=== PATIENT | female | born 2000 | race Caucasian/White ===

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

== ENCOUNTER 2020-02-09 05:58 | Inpatient (IN) | payer MEDICAID ==
[~2020-02-09] VITALS: Ht 162.6 cm; Wt 56.6 kg
[2020-02-09] VITALS (63 sets, daily range): BP systolic 71–138; BP diastolic 37–94
[~2020-02-09 05:58] MED LIST changes: +ACET-2267 PO
--- NOTE | 2020-02-09 06:03 | NUR ---
NICOLASA MCCORMACK presented to unit via AMBULATORY from ED, accompanied by S/O , FOR INDUCTION. NICOLASA MCCORMACK weighed, gowned, voided, and to bed. EFHM and TOCO applied, VS taken. KSENIAEDDManjula Guzman oriented to bed controls, call light, TV, heat, and A/C controls. ABOVE AND CHARTED INTERVENTIONS CARRIED OUT PER SEAN CORTEZ.
[2020-02-09] MEDS ORDERED: OXYTOCIN PRE-MIX DRIP 500 ML IV ONE (06:38)
[2020-02-09] MEDS ORDERED: D5 LR IV SOLUTION 1,000 ML IV ONE (06:38)
[2020-02-09] MEDS ORDERED: OXYTOCIN PRE-MIX DRIP 500 ML IV SCH ×2 (06:42→16:36)
[2020-02-09] MEDS ORDERED: BUTORPHANOL INJ 2 MG/ML (STADOL) VIAL IV PRN (06:45)
[2020-02-09 06:47] LABS: BASOPHILS % (AUTO) 0 % (0-10); EOSINOPHILS # (AUTO) 0.1 10^3/uL (0.0-0.3); EOSINOPHILS % (AUTO) 1 % (0-10); HEMATOCRIT 32 % (35-52); HEMOGLOBIN 10.7 G/DL (11.5-16.0); LYMPHOCYTES # (AUTO) 2.3 X 10^3 (1.0-4.0); LYMPHOCYTES % (AUTO) 20 % (12-44); MEAN CORPUSCULAR HEMOGLOBIN 30 PG (25-34); MEAN CORPUSCULAR HGB CONC 33 G/DL (32-36); MEAN CORPUSCULAR VOLUME 89 FL (80-99); MONOCYTES % (AUTO) 9 % (0-12); NEUTROPHILS # (AUTO) 7.7 X 10^3 (1.8-7.8); NEUTROPHILS % (AUTO) 69 % (42-75); PLATELET COUNT 168 10^3/uL (130-400); RED CELL DISTRIBUTION WIDTH 14.2 % (10.0-14.5); WHITE BLOOD COUNT 11.1 10^3/uL (4.3-11.0)
--- NOTE | 2020-02-09 06:47 | History & Physical-OB ---
OB - Chief Complaint & HPI Date/Time Date of Admission: Date of Admission: Feb 09, 2020 at 05:58 Date seen by a Provider: Feb 09, 2020 Time Seen by a Provider: 06:30 Chief Complaint/History OB-Reason for Admission/Chief: Induction of Labor Hx : 1 Hx Para: 0 Expected Date of Delivery: Feb 13, 2020 Gestational Age in Weeks: 39 Gestational Age in Days: 3 Admission Nurse Assessment Rev: Yes History of Labs GBS negative Allergies and Home Medications Allergies Coded Allergies: codeine (Verified Allergy, Mild, HIVES, 01/22/18) amoxicillin (Unverified Adverse Reaction, Mild, 01/22/18) potassium clavulanate (Unverified Adverse Reaction, Mild, 01/22/18) Home Medications Acetaminophen 325 Mg Tablet, 650 MG PO Q8H PRN for PAIN-MILD (1-4), (Reported) Acetaminophen 500 Mg Tablet, 1,000 MG PO PRN, (Reported) Vits #93/Iron Fum/FA 1 Each Tablet, 1 EACH PO DAILY, (Reported) Patient Home Medication List Home Medication List Reviewed: Yes OB - History Hx of Present Care: Yes Ultrasounds: Normal mid trimester US Obstetrical Complications: None Medical Complications: None Delivery History Hx Blood Disorders: No Adverse Rxn to Tranfusion: No (N/A) Patient Past Medical History no chronic medical problems Social History/Family History HIV/AIDS: No Sexually Transmitted Disease: No 2nd Hand Smoke Exposure: No Immunizations Tetanus Booster (TDap): Less than 5yrs OB - Admission Exam Physical Exam Vitals: Vital Signs 02/09/20 06:15 Pulse 92 Resp 18 B/P (MAP) 108/68 (81) Pulse Ox 98 O2 Delivery Room Air HEENT: Moist Membranes Heart: Rhythm Normal Lungs: Clear Abdomen: Gravid Cervical Dilatation: 2cm Effacement: 75% Station: -3 Membranes: Intact Heart Rate: 140's Accelerations: Accelerations Present Short Term Variability: Present Half-Way Variability: Average (6-25) Contractions on Admission: >10 Minutes Apart OB - Assessment/Plan/Diagnosis Assessment Assessment: induction of labor Admission Dx 1. IUP at term 39 weeks. Admission Status: Inpatient Order (span 2 midnights) Reason for Inpatient Admission: Induction of labor Plan Plan: Induction Induction Method: AROM Other Plan -doesn't desire epidural -pit augmentation NICOLASA PENN MD Feb 09, 2020 06:47
[2020-02-09] MEDS: D5 LR IV SOLUTION 1,000 ML IV SCH ×2 (06:58→14:53)
[2020-02-09] MEDS ORDERED: fentaNYL 2 mcg/ml BUPIVA 0.125 100 ML ONE (09:00)
[2020-02-09] MEDS ORDERED: BUPIVACAINE 0.25% 30 ML (SENSORCAINE) VIAL ONE (09:19)
[2020-02-09] MEDS ORDERED: fentaNYL INJECTION 100 MCG/2 ML AMP ONE (09:20)
--- NOTE | 2020-02-09 09:27 | NUR ---
0927 Lu ALEXANDER CRNA here for epidural placement. Procedure explained, consent reviewed and signed by anesthesia. Questions answered to patient's satisfaction. Time out taken to verify correct patient/procedure. 0932 Patient up to side of bed, assisted into sitting position. 0934 Betadine prep done x3 and sterile drape applied. 0936 Local done, see anesthesia record. 0943 Test dose given, see anesthesia record for drug and dosage. Epidural catheter secured in place. Epidural placement complete. 0948 Assisted back into bed, monitors adjusted. Epidural dosed, see anesthesia record. Epidural infusing @12cc/hr stated per pump; see EMAR for further details. Patient tolerated procedure well.
[2020-02-09] MEDS ORDERED: fentaNYL 2 mcg/ml BUPIVA 0.125 100 ML IV SCH (10:00)
[2020-02-09] MEDS ORDERED: CATHETER FLUSH 10 ML SYR IV PRN (10:00)
[2020-02-09] MEDS ORDERED: EPIDURAL (fentaNYL 2 MCG/ML BUPIVA 0.125%)100 ML BAG EPI SCH (10:00)
[2020-02-09] MEDS ORDERED: LACTATED RINGERS 1,000 ML IV ONE (10:00)
[2020-02-09] MEDS ORDERED: NALOXONE 0.4 MG/ML 1 ML (NARCAN) VIAL IV PRN (10:00)
[2020-02-09] MEDS ORDERED: CATHETER FLUSH 10 ML SYR IV SCH ×2 (14:00→22:00)
[2020-02-09] MEDS ORDERED: MINERAL OIL CONCENTRATE 99.9% 15 ML UDC ONE (14:29)
[2020-02-09] MEDS ORDERED: MEPIVACAINE (CARBOCAINE) 2% 50 ML VIAL ONE (14:29)
--- NOTE | 2020-02-09 16:36 | OB Labor & Delivery Record ---
L&D History Date of Service Date of Service: Feb 09, 2020 History Expected Date of Delivery: Feb 13, 2020 Gestational Age in Weeks: 39 Hx : 1 Hx Para: 0 Complications Events: Routine care Operative Indications (Cesarea: N/A-Vaginal Delivery Intrapartal Events: None L&D Stage1 Stage One Onset of Labor - Date: Feb 09, 2020 Onset of Labor - Time: 06:30 Monitors and Tracing Monitor Mode: Internal Heart Rate: 135 Monitor Accelerations: Uniform Monitor Decelerations: None Station: -2 Halfway Variability: Average (6-10) Short Term Variability: Present Presentation: Vertex Vital Signs VS - Last 72 Hours, by Label 02/09/20 02/09/20 02/09/20 02/09/20 06:15 07:16 07:31 07:47 Temp 36.1 Pulse 92 83 74 81 Resp 18 18 18 18 B/P (MAP) 108/68 (81) 107/58 (74) 105/63 (77) 132/86 (101) Pulse Ox 98 O2 Delivery Room Air Room Air Room Air Room Air 02/09/20 02/09/20 02/09/20 02/09/20 08:03 08:13 08:16 08:31 Temp 36.2 Pulse 81 78 86 Resp 18 18 18 B/P (MAP) 124/83 (97) 117/80 (92) 123/83 (96) O2 Delivery Room Air Room Air Room Air 02/09/20 02/09/20 02/09/20 02/09/20 08:46 09:01 09:16 09:33 Pulse 80 79 85 86 Resp 18 18 18 18 B/P (MAP) 113/74 (87) 110/72 (85) 118/74 (89) 107/58 (74) Pulse Ox 98 O2 Delivery Room Air Room Air Room Air Room Air 02/09/20 02/09/20 02/09/20 02/09/20 09:35 09:38 09:41 09:44 Pulse 96 99 109 99 Resp 18 18 18 18 B/P (MAP) 114/67 (83) 119/70 (86) 122/70 (87) 107/63 (78) Pulse Ox 98 99 100 99 O2 Delivery Room Air Room Air Room Air Room Air 02/09/20 02/09/20 02/09/2027/20 09:47 09:50 09:53 10:01 Pulse 104 101 100 93 Resp 18 18 18 18 B/P (MAP) 102/61 (75) 99/60 (73) 103/62 (76) 101/53 (69) Pulse Ox 100 99 100 99 O2 Delivery Room Air Room Air Room Air Room Air 02/09/20 02/09/20 02/09/20 02/09/20 10:06 10:10 10:13 10:14 Pulse 98 99 97 120 Resp 18 18 18 18 B/P (MAP) 97/52 (67) 92/48 (63) 92/55 (67) 84/47 (59) Pulse Ox 99 99 O2 Delivery Room Air Room Air Room Air Room Air 02/09/20 02/09/20 02/09/20 02/09/20 10:17 10:19 10:24 10:30 Temp 36.2 Pulse 109 72 102 86 Resp 18 18 18 18 B/P (MAP) 71/37 (48) 85/51 (62) 97/57 (70) 106/62 (77) Pulse Ox 99 98 98 99 O2 Delivery Room Air Room Air Room Air Room Air 02/09/20 02/09/20 02/09/20 02/09/20 10:35 10:40 10:45 10:50 Pulse 88 93 73 88 Resp 18 18 18 18 B/P (MAP) 104/58 (73) 114/68 (83) 106/61 (76) 104/61 (75) Pulse Ox 94 100 98 99 O2 Delivery Room Air Room Air Room Air Room Air 02/09/20 02/09/20 02/09/20 02/09/20 10:55 11:00 11:05 11:10 Pulse 93 86 81 95 Resp 18 18 18 18 B/P (MAP) 101/57 (72) 103/62 (76) 105/58 (74) 105/65 (78) Pulse Ox 100 100 99 100 O2 Delivery Room Air Room Air Room Air Room Air 02/09/20 02/09/20 02/09/20 02/09/20 11:15 11:20 11:25 11:30 Pulse 87 83 78 91 Resp 18 18 18 18 B/P (MAP) 107/67 (80) 108/74 (85) 107/65 (79) 112/63 (79) Pulse Ox 100 100 100 100 O2 Delivery Room Air Room Air Room Air Room Air 02/09/20 02/09/20 02/09/20 02/09/20 11:35 11:40 12:00 12:27 Temp 36.0 Pulse 67 86 73 63 Resp 18 18 18 18 B/P (MAP) 111/65 (80) 109/63 (78) 133/88 (103) 117/80 (92) Pulse Ox 98 98 98 O2 Delivery Room Air Room Air Room Air Room Air 02/09/20 02/09/20 12:41 12:57 Pulse 87 83 Resp 18 18 B/P (MAP) 125/58 (80) 119/72 (88) Pulse Ox 99 100 O2 Delivery Room Air Room Air Signs of Distress by FHT Signs of Distress no Rupture of Membranes Spontaneous Ruture of Membrane: No Amniotic Membrane Rupture Time: 632 Amniotic Membrane Fluid Desc.: Yellow Vaginal Bleeding Description: None Induction/Anesthesia Epidural Cath Placement - Time: 942 L&D Stage2 Stage Two Stage II Date: Feb 09, 2020 Stage II Time: 15:00 Monitors and Tracing Monitor Mode: Internal Heart Rate: 135 Monitor Accelerations: Uniform Monitor Decelerations: None Set Up And Charger Variability: Average (6-10) Short Term Variability: Present Position: Left Occiput Anterior Presentation: Vertex Signs of Distress by FHT Signs of Distress no Cord Descript/Complications Cord Vessel Description: 3 Vessels Delivery Type Infant Delivery Method: Spontaneous Vaginal Anterior Shoulder: Left Episiotomy/Perineal Laceration Laceraction(s)/Extensions: Yes Episiotomy Description: Periurethral Extnsion/lac (bilateral) Sutures Used: Vicryl Condition of Infant Delivery 1 minute Comment: 8 5 minute Comment: 9 Condition of Condition of : Living Exam: No Observed Abnormalities Resuscitation Resuscitation: N/A - Spontaneous Resp L&D Stage3 Stage Three Stage III Date: Feb 09, 2020 Stage III Time: 15:05 Pictocin Pitocin Administration mu/min: 8 Pitocin ml/hr: 8 Pitocin Administration Comment: 1017 PITOCIN INCREASED. Placenta Delivery Placenta Delivery: Spontaneous Delivery Summary Summary Estimated blood loss (mL): 150 Condition of Delivery Examined: Cervix Examined Post Hemorrhage: No Intervention Required none CALLUM VELA MD Feb 09, 2020 16:36
[2020-02-09] MEDS ORDERED: TETANUS,DIPTH,PERTUSS P/F (BOOSTRIX) 0.5 ML VIAL IM ONE (16:45)
[2020-02-09] MEDS ORDERED: WITCH HAZEL(TUCKS) 40 EA JAR TOP PRN (16:45)
[2020-02-09] MEDS ORDERED: MEASLES,MUMPS,RUBELLA 1 EA INJ SQ ONE (16:45)
[2020-02-09] MEDS ORDERED: BENZOCAINE/MENTHOL (DERMOPLAST) 60 ML CAN TP PRN (16:45)
[2020-02-09] MEDS: IBUPROFEN 600 MG (MOTRIN) TAB PO SCH (17:58)
[2020-02-09] MEDS: ACETAMINOPHEN 500 MG TAB (TYLENOL) PO SCH (17:58)
--- NOTE | 2020-02-09 19:05 | NUR ---
REFER TO LABOR FLOW SHEET.
[2020-02-10 00:06] VITALS: BP 96/60
[2020-02-10] MEDS: ACETAMINOPHEN 500 MG TAB (TYLENOL) PO SCH ×3 (00:06→14:11)
[2020-02-10] MEDS: IBUPROFEN 600 MG (MOTRIN) TAB PO SCH ×3 (00:06→14:12)
[2020-02-10] MEDS: DOCUSATE SODIUM 100 MG (COLACE) CAP PO SCH ×2 (00:06→08:08)
[2020-02-10 05:28] LABS: BASOPHILS % (AUTO) 0 % (0-10); EOSINOPHILS # (AUTO) 0.1 10^3/uL (0.0-0.3); EOSINOPHILS % (AUTO) 0 % (0-10); HEMATOCRIT 28 % (35-52); LYMPHOCYTES # (AUTO) 2.3 X 10^3 (1.0-4.0); LYMPHOCYTES % (AUTO) 19 % (12-44); MEAN CORPUSCULAR HEMOGLOBIN 29 PG (25-34); MEAN CORPUSCULAR HGB CONC 32 G/DL (32-36); MEAN CORPUSCULAR VOLUME 90 FL (80-99); MEAN PLATELET VOLUME 13.1 FL (7.4-10.4); MONOCYTES # (AUTO) 1.1 X 10^3 (0.0-1.0); MONOCYTES % (AUTO) 9 % (0-12); NEUTROPHILS # (AUTO) 8.7 X 10^3 (1.8-7.8); NEUTROPHILS % (AUTO) 72 % (42-75); PLATELET COUNT 124 10^3/uL (130-400); RED CELL DISTRIBUTION WIDTH 13.7 % (10.0-14.5); WHITE BLOOD COUNT 12.1 10^3/uL (4.3-11.0)
[2020-02-10] MEDS ORDERED: PRENATAL VITAMIN 1 EA TAB PO SCH (07:00)
--- NOTE | 2020-02-10 07:00 | NUR ---
DR. VELA HERE TO SEE PT.
[2020-02-10 07:26] VITALS: BP 98/65
[2020-02-10 08:00] VITALS: BP 99/63
--- NOTE | 2020-02-10 08:00 | NUR ---
A.M. ASSESSMENT COMPLETED. VSS. CARING FOR IN ROOM.
--- NOTE | 2020-02-10 09:19 | Anesthesia-Regional Post-Op ---
Regional Patient Condition Mental Status: Alert, Oriented x3 Circulation: Same as Pre-Op Headache: Absent Sensation: Full Recovery Motor Block: Absent Post Op Complications Complications None Follow Up Care/Instructions Patient Instructions None needed. Anesthesia/Patient Condition Patient is doing well, no complaints, stable vital signs, no apparent adverse anesthesia problems. No complications reported per nursing. UMA KRISHNAN CRNA Feb 10, 2020 09:19
--- NOTE | 2020-02-10 10:30 | NUR ---
HAS BEEN IN TO SEE PT. TO ASSIST WITH FEEDING.
[2020-02-10 12:30] VITALS: BP 99/66
--- NOTE | 2020-02-10 12:30 | NUR ---
VSS. CARING FOR INFANT IN ROOM. GOOD INTERACTION NOTED. HAS BEEN IN THE ROOM TO ASSIST WITH .
--- NOTE | 2020-02-10 14:13 | NUR ---
TDAP GIVEN IM IN LEFT DELTOID. SITE CLEAR.
--- NOTE | 2020-02-10 17:12 | Discharge Summary ---
Diagnosis/Chief Complaint Date of Admission Feb 09, 2020 at 05:58 Date of Discharge February 10, 2020 Discharge Date: Feb 10, 2020 Discharge Time: 18:00 Admission Diagnosis Admission Diagnosis 1. Intrauterine at 39 weeks gestation Discharge Diagnosis 1. Intrauterine at 39 weeks gestation Reason Hospital Visit 19-year-old 1 now term 1 who initially presented to labor and delivery for induction of labor in the morning of February 09, 2020. She had a uneventful course. She was GBS negative at 36 weeks. Her due date was listed as February 13, 2020 based upon early ultrasound. Discharge Summary-OBS Procedures 1. Epidural per anesthesia 2. Spontaneous vaginal delivery 3. Repair of bilateral periurethral tear Discharge Physical Examination Allergies: Coded Allergies: codeine (Verified Allergy, Mild, HIVES, pt has taken Lortab w/o issue, 02/09/20) amoxicillin (Unverified Adverse Reaction, Mild, 01/22/18) potassium clavulanate (Unverified Adverse Reaction, Mild, 01/22/18) Vitals & I&Os Vital Signs Date Time Temp Pulse Resp B/P (MAP) Pulse Ox O2 Delivery O2 Flow Rate FiO2 02/10/20 12:30 36.8 78 18 99/66 (77) 98 Room Air General Appearance: No Acute Distress Respiratory: Clear to Auscultation Cardiovascular: Regular Rate Abdominal: Normal Bowel Sounds (with uterus firm) Skin: No Rashes Psych/Mental Status: Mental Status NL Hospital Course Was the Problem List Reviewed?: Yes Patient ultimately underwent labor course in the morning of February 09, 2020 and delivered a term viable female. had received Apgars of 8 at 1 minute and 9 at 5 minutes. See labor and delivery note for full details. Following delivery patient underwent routine care orders. She had no complications during the remainder of hospital stay. She breast-fed her daughter. For cramping she was given ibuprofen. She had hemoglobin the day after delivery of 9.0 compared to 10.7 on admission. She was eating regular diet and tolerating. She had no chest pain or leg pain. She was felt ready for dismissal during the early evening of February 10, 2020. Discharge Instructions to patient/family Please see electronic discharge instructions given to patient. Discharge Medications Reviewed and agree with Discharge Medication list on patient's Discharge Instruction sheet Clinical Quality Measures DVT/VTE Risk/Contraindication: Risk Factor Score Per Nursin RFS Level Per Nursing on Admit: 1=Low/No VTE PPX CALLUM VLEA MD Feb 10, 2020 17:12
--- NOTE | 2020-02-10 17:13 | Discharge Inst-Women's Service ---
Discharge Inst-Women's Serv Depart Medication/Instructions New, Converted or Re-Newed RX: Other Problems Reviewed?: Yes Consults/Follow Up Additional Follow Up: Yes (Dr Vela in 6 weeks.) Activity Activity: Activity as Tolerated Driving Instructions: No Driving for 1 Week Nothing Inside Vagina: No [place] (for 6 weeks.) Diet Discharge Diet: Regular Diet Return to The Hospital For: as below Symptoms to Report to : Bleeding Excessive, Fever Over 101 Degrees F, Vaginal Discharge Foul For Any Problems or Questions: Contact Your Physician CALLUM VELA MD Feb 10, 2020 17:13
[2020-02-10 17:30] VITALS: BP 101/52
--- NOTE | 2020-02-10 17:30 | NUR ---
VSS. PREPARING FOR DISCHARGE.
--- NOTE | 2020-02-10 18:15 | NUR ---
DISCHARGE INSTRUCTIONS REVIEWED WITH COPY TO PT. STATES UNDERSTANDING OF ALL INSTRUCTIONS AND NEED TO F/U IN [address] VELA INSTRUCTED AND NEEDED.
[2020-02-10 18:30] VITALS: BP 101/52
--- NOTE | 2020-02-10 18:30 | NUR ---
DISMISSED AMB FROM [facility] WITH INFANT IN STABLE CONDITION TO [facility] BY Dayana AND BRODERICK BERNABE RN.
== END 2020-02-10 18:30 | disposition home or self-care (01) | DRG 807 ==
LOC: LDRP 05:58
PROVIDERS: ADMIT Family Medicine; ATTEND Family Medicine
PROC: 10E0XZZ Delivery of Products of Conception, External Approach (ICD-10-PCS; principal; 2020-02-09)
PROC: 0UQMXZZ Repair Vulva, External Approach (ICD-10-PCS; 2020-02-09)
PROC: 10907ZC Drainage of Amniotic Fluid, Therapeutic from Products of Conception, Via Natural or Artificial Opening (ICD-10-PCS; 2020-02-09)
DX: O71.82 Other specified trauma to perineum and vulva (principal); Z37.0 Single live birth; Z3A.39 39 weeks gestation of pregnancy; Z23 Encounter for immunization
CPT/HCPCS: 36415; 85025; 86850; 86900; 86901; 90715

== ENCOUNTER → 2020-11-08 | Outpatient (CLI) | payer MEDICAID ==
--- NOTE | 2020-11-08 14:21 | Diagnostic Imaging Report ---
PROCEDURE: US OB SINGLE FETUS <14 WKS. TECHNIQUE: Multiple real-time grayscale images were obtained over the gravid uterus in various projections. INDICATION: dating. There is an intrauterine gestational sac containing a pole consistent with 10 weeks 5 days gestation. heart rate was recorded 185 bpm. No lori-gestational sac hemorrhage is detected. Adnexa are unremarkable. There is no free fluid. IMPRESSION: Single live IUP approximately 10 weeks 5 days gestational age. Estimated date of confinement sonographically is 06/01/2021. Dictated by: Dictated on workstation # [id number]
== END ==
LOC: RAD 12:00
PROVIDERS: ATTEND Family Medicine
DX: Z34.91 Encounter for supervision of normal pregnancy, unspecified, first trimester (principal); Z3A.10 10 weeks gestation of pregnancy
CPT/HCPCS: 76801

== ENCOUNTER → 2021-01-03 | Outpatient (CLI) | payer MEDICAID ==
--- NOTE | 2021-01-03 12:42 | Diagnostic Imaging Report ---
INDICATION: survey. TECHNIQUE: Multiple real-time grayscale images were obtained over the gravid uterus. COMPARISON: 11/08/2020. FINDINGS: There is a single live fetus in a variable presentation. heart rate was recorded at 147 BPM. Placenta is anterior. Amniotic fluid volume appears normal. survey demonstrates kidneys, bladder, and stomach to be unremarkable. brain is unremarkable. There is a four-chamber heart. There is a three-vessel cord with normal insertion. spine is unremarkable. Biometrical measurements are as follows: Biparietal 4.15 cm, age 18 weeks 5 days. Head circumference 15.90 cm, age 18 weeks 6 days. Abdominal circumference 13.15 cm, age 18 weeks 5 days. Femur length 2.87 cm, age 18 weeks 6 days. Sonographic estimate age: 18 weeks 6 days. Sonographic estimated date of delivery: 05/31/21. Estimated Weight: 255 gm (+/- 37 gm). LMP percentile: 46%. heart rate: 147 beats per minute. number: 1 of 1. IMPRESSION: Single live IUP of 18 weeks 6 days gestational age demonstrating normal interval growth when compared with prior exam. No complicating features are detected. Dictated by: Dictated on workstation # [id number]
== END ==
LOC: RAD 11:15
PROVIDERS: ATTEND Family Medicine
DX: Z34.92 Encounter for supervision of normal pregnancy, unspecified, second trimester (principal); Z3A.18 18 weeks gestation of pregnancy
CPT/HCPCS: 76805

== ENCOUNTER 2021-01-18 13:45 | Outpatient (CLI) | payer MEDICAID ==
[~2021-01-18] VITALS: Ht 162.6 cm; Wt 49.4 kg
--- NOTE | 2021-01-18 15:38 | Diagnostic Imaging Report ---
INDICATION: Vaginal bleeding and decreased movement. The fetus appears to be cephalic. heart rate is recorded at 152 bpm. Placenta is anterior. Amniotic fluid index is 14.5 cm. No retroplacental fluid collection is seen. Cervical length is 4 cm. IMPRESSION: Unremarkable limited obstetrical ultrasound. Dictated by: Dictated on workstation # [id number]
[2021-01-18 15:45] VITALS: BP 94/59
[2021-01-18 15:59] LABS: BILIRUBIN,URINE NEGATIVE (NEGATIVE); CLARITY,URINE CLEAR; COLOR,URINE YELLOW; GLUCOSE, URINE (UA) NEGATIVE (NEGATIVE); KETONES,URINE NEGATIVE (NEGATIVE); LEUKOCYTE ESTERASE ,URINE NEGATIVE (NEGATIVE); NITRITE,URINE NEGATIVE (NEGATIVE); PH,URINE 7.5 (5-9); PROTEIN,URINE NEGATIVE (NEGATIVE)
[2021-01-18 16:44] LABS: AMORPHOUS SEDIMENT,UR FEW AMOR PHOSPHATE /LPF; BACTERIA,URINE TRACE /HPF; WBC,URINE 0-2 /HPF
--- NOTE | 2021-01-19 07:39 | Physician Query-Final Dx ---
JANIYA CHAUDHARY 01/19/21 0739: Clinic Account Progress/Dx Physician Query: Please give diagnosis Please include # weeks gestation Date of Service Jan 18, 2021 at 13:45 CALLUM VELA MD 01/20/21 0658: Clinic Account Progress/Dx DIAGNOSIS: Diagnosis 1. IUP at 21 weeks 2. Vaginal bleed -- reassuring JANIYA CHAUDHARY Jan 19, 2021 07:39 CALLUM VELA MD Jan 20, 2021 06:58
== END 2021-01-18 17:05 | disposition home or self-care (01) ==
LOC: WSo 13:45 → LDRP 13:46 → WSo 17:05
PROVIDERS: ATTEND Family Medicine
DX: O36.8190 Decreased fetal movements, unspecified trimester, not applicable or unspecified (principal); O46.90 Antepartum hemorrhage, unspecified, unspecified trimester; Z3A.00 Weeks of gestation of pregnancy not specified
CPT/HCPCS: 76815; 81000; G0463; 99213

== ENCOUNTER 2021-01-25 18:58 | Emergency (ER) | payer MEDICAID ==
[~2021-01-25] VITALS: Ht 162.6 cm; Wt 50.0 kg
[~2021-01-25 18:58] MED LIST changes: -SULF1TAB35 PO; +SULF1TAB38 PO
[2021-01-25 19:30] VITALS: BP 104/68
--- NOTE | 2021-01-25 19:33 | ED EENT ---
History of Present Illness General Stated Complaint: TOOTH ACHE Source: patient Exam Limitations: no limitations History of Present Illness Date Seen by Provider: Jan 25, 2021 Time Seen by Provider: 19:33 Initial Comments Dental pain that started this morning, 22 weeks . Allergies and Home Medications Allergies Coded Allergies: codeine (Verified Allergy, Mild, HIVES, pt has taken Lortab w/o issue, 02/09/20) amoxicillin (Unverified Adverse Reaction, Mild, 01/22/18) potassium clavulanate (Unverified Adverse Reaction, Mild, 01/22/18) Home Medications Vits #93/Iron Fum/FA 1 Each Tablet, 1 EACH PO DAILY, (Reported) Past Dkeivrg-Uvrqxo-Hgphyx Hx Immunizations Up To Date Tetanus Booster (TDap): Less than 5yrs PED Vaccines UTD: Yes Seasonal Allergies Seasonal Allergies: No Past Medical History Surgeries: Yes Appendectomy, Ear Surgery, Gallbladder Respiratory: No Currently Using CPAP: No Currently Using BIPAP: No Cardiac: No Palpitations, Syncope Neurological: No Headaches /Migraines Reproductive Disorders: Yes (Ovarian Cysts; HX OF HEAVY PERIODS) Female Reproductive Disorders: Menstrual Problems, Ovarian Cyst Sexually Transmitted Disease: No HIV/AIDS: No Genitourinary: No UTI-Chronic Gastrointestinal: Yes Gastroesophageal Reflux, Hiatal Hernia, Gall Bladder Disease Musculoskeletal: No Endocrine: No HEENT: No Loss of Vision: Denies Hearing Impairment: Denies Cancer: No Psychosocial: Yes Anxiety Integumentary: No Blood Disorders: No Adverse Reaction/Blood Tranf: No (N/A) Family Medical History FH: lupus 19 MOTHER No Pertinent Family Hx Physical Exam Vital Signs Vital Signs - First Documented 01/25/21 19:30 Temp 36.5 Pulse 82 Resp 18 B/P (MAP) 104/68 (80) Pulse Ox 98 O2 Delivery Room Air Height, Weight, BMI Height: 5'4.00" Weight: 106lbs. 0.0oz. [id number]; 18.68 BMI Method:Stated Progress/Results/Core Measures Results/Orders My Orders Orders - ADOLFO JAMES APRN Clindamycin Capsule (Cleocin Capsule) (01/25/21 20:00) Vital Signs/I&O 01/25/21 19:30 Temp 36.5 Pulse 82 Resp 18 B/P (MAP) 104/68 (80) Pulse Ox 98 O2 Delivery Room Air Departure Impression Primary Impression: Dental abscess Disposition: 01 HOME, SELF-CARE Condition: Stable Departure-Patient Inst. Decision time for Depature: 19:55 Referrals: CALLUM VELA MD (PCP/Family) Primary Care Physician Patient Instructions: Dental Pain ED Add. Discharge Instructions: Plan: 1. Warm salt water gargles four times a day. 2. Take antibiotics as directed and complete full course. 3. Follow up with your dentist, please call to schedule appointment. 4. May take Tylenol as needed for pain per package. 5. Return for any new, concerning, or worsening symptoms. Scripts Clindamycin HCl (Clindamycin HCl) 300 Mg Capsule 300 MG PO Q6H for 7 Days, #28 CAP 0 Refills Prov: ADOLFO JAMES CLASSIFYING MACHINE OPERATOR 01/25/21 ADOLOF JAMES CLASSIFYING MACHINE OPERATOR Jan 25, 2021 19:33
[2021-01-25] MEDS ORDERED: CLIN300C12 PO (19:58)
[2021-01-25] MEDS ORDERED: CLINDAMYCIN 150 MG (CLEOCIN) CAP PO ONE (20:00)
== END 2021-01-25 20:05 | disposition home or self-care (01) ==
LOC: EDUNIT# 18:58 → ER 19:00
DX: O99.612 Diseases of the digestive system complicating pregnancy, second trimester (principal); K04.7 Periapical abscess without sinus; Z3A.22 22 weeks gestation of pregnancy
CPT/HCPCS: 99283

== ENCOUNTER 2021-03-26 11:19 | Outpatient (CLI) | payer MEDICAID ==
[~2021-03-26] VITALS: Ht 162.6 cm; Wt 53.5 kg
[~2021-03-26 11:19] MED LIST changes: +CLIN300C12 PO
[2021-03-26 11:34] VITALS: BP 110/67
[2021-03-26 11:50] VITALS: BP 108/73
[2021-03-26 11:57] LABS: BILIRUBIN,URINE NEGATIVE (NEGATIVE); CLARITY,URINE CLEAR; COLOR,URINE YELLOW; GLUCOSE, URINE (UA) NEGATIVE (NEGATIVE); KETONES,URINE NEGATIVE (NEGATIVE); LEUKOCYTE ESTERASE ,URINE TRACE (NEGATIVE); NITRITE,URINE NEGATIVE (NEGATIVE); PH,URINE 7.5 (5-9); PROTEIN,URINE NEGATIVE (NEGATIVE)
[2021-03-26 12:00] VITALS: BP 110/67
[2021-03-26 12:08] LABS: BACTERIA,URINE FEW /HPF; SQUAMOUS EPITHELIAL CELL,UR 25-50 /HPF
[2021-03-26 12:30] VITALS: BP 110/67
--- NOTE | 2021-03-28 08:05 | Physician Query-Final Dx ---
Clinic Account Progress/Dx Physician Query: Please give diagnosis Please include # weeks gestation Date of Service Mar 26, 2021 at 11:19 JANIYA CHAUDHARY Mar 28, 2021 08:05
== END 2021-03-26 12:30 | disposition home or self-care (01) ==
LOC: WSo 11:19 → LDRP 11:21 → WSo 12:30
PROVIDERS: ATTEND Family Medicine
DX: O41.8X30 Other specified disorders of amniotic fluid and membranes, third trimester, not applicable or unspecified (principal); Z3A.30 30 weeks gestation of pregnancy
CPT/HCPCS: 81000; 87088

== ENCOUNTER 2021-05-18 13:28 | Inpatient (IN) | payer MEDICAID ==
[~2021-05-18] VITALS: Ht 162 cm; Wt 57.0 kg
[2021-05-18] VITALS (21 sets, daily range): BP systolic 84–135; BP diastolic 52–91
[~2021-05-18 13:28] MED LIST changes: +CLIN-144 PO; -CLIN300C12 PO
[2021-05-18 14:07] LABS: BILIRUBIN,URINE NEGATIVE (NEGATIVE); CLARITY,URINE CLEAR; COLOR,URINE YELLOW; GLUCOSE, URINE (UA) NEGATIVE (NEGATIVE); KETONES,URINE NEGATIVE (NEGATIVE); LEUKOCYTE ESTERASE ,URINE NEGATIVE (NEGATIVE); NITRITE,URINE NEGATIVE (NEGATIVE); PH,URINE 7.5 (5-9); PROTEIN,URINE NEGATIVE (NEGATIVE)
[2021-05-18 14:15] LABS: BACTERIA,URINE NEGATIVE /HPF
[2021-05-18] MEDS ORDERED: FLU QUADRIvalent (3YOA+) 60 mcg/0.5 ml 2021-22(AFLURIA) IM ONE (14:15)
[2021-05-18 14:16] LABS: AMORPHOUS SEDIMENT,UR RARE AMOR PHOSPHATE /LPF
[2021-05-18] MEDS ORDERED: D5 LR IV SOLUTION 1,000 ML IV SCH (14:45)
[2021-05-18 15:27] LABS: BASOPHILS % (AUTO) 0 % (0-10); MEAN CORPUSCULAR HEMOGLOBIN 31 pg (25-34); MEAN CORPUSCULAR HGB CONC 34 g/dL (32-36)
[2021-05-18 15:29] LABS: EOSINOPHILS # (AUTO) 0.1 10^3/uL (0.0-0.3); EOSINOPHILS % (AUTO) 1 % (0-10); HEMATOCRIT 36 % (35-52); HEMOGLOBIN 12.2 g/dL (11.5-16.0); LYMPHOCYTES % (AUTO) 17 % (12-44); MEAN CORPUSCULAR VOLUME 90 fL (80-99); MEAN PLATELET VOLUME 13.2 fL (9.0-12.2); MONOCYTES # (AUTO) 0.7 10^3/uL (0.0-1.0); MONOCYTES % (AUTO) 6 % (0-12); NEUTROPHILS # (AUTO) 8.6 10^3/uL (1.8-7.8); NEUTROPHILS % (AUTO) 75 % (42-75); PLATELET COUNT 158 10^3/uL (130-400); WHITE BLOOD COUNT 11.4 10^3/uL (4.3-11.0)
[2021-05-18 16:01] LABS: SMEAR SCAN COMMENT YES
--- NOTE | 2021-05-18 16:59 | History & Physical-OB ---
OB - Chief Complaint & HPI Date/Time Date of Admission: Date of Admission: May 18, 2021 at 14:42 Date seen by a Provider: May 18, 2021 Time Seen by a Provider: 16:55 Chief Complaint/History OB-Reason for Admission/Chief: Onset of Labor Hx : 3 Hx Para: 1 Expected Date of Delivery: Jun 01, 2021 Gestational Age in Weeks: 38 Gestational Age in Days: 0 Admission Nurse Assessment Rev: Yes History of Labs GBS negative Allergies and Home Medications Allergies Coded Allergies: codeine (Verified Allergy, Mild, HIVES, pt has taken Lortab w/o issue, 02/09/20) amoxicillin (Unverified Adverse Reaction, Mild, 01/22/18) potassium clavulanate (Unverified Adverse Reaction, Mild, 01/22/18) Patient Home Medication List Home Medication List Reviewed: Yes Vits #93/Iron Fum/FA ( Formula Tablet) 1 Each Tablet, 1 EACH PO DAILY, (Reported) Entered as Reported by: LAZARO HERNANDEZ on 09/23/19 1106 OB - History Hx of Present Care: Yes Ultrasounds: Normal mid trimester US Obstetrical Complications: None Medical Complications: None Obstetrical History Hx : 3 Hx Para: 1 Hx Total # of Abortions (Spona: 1 Delivery History Hx Blood Disorders: No Adverse Rxn to Tranfusion: No (N/A) Patient Past Medical History no chronic medical problems Social History/Family History Alcohol Use: Denies Use Recreational Drug Use: No 2nd Hand Smoke Exposure: No Immunizations Tetanus Booster (TDap): Less than 5yrs OB - Admission Exam Physical Exam Vitals: Vital Signs 05/18/21 05/18/21 13:45 13:56 Temp 36.0 Pulse 105 Resp 18 B/P (MAP) 119/75 (90) Pulse Ox 98 O2 Delivery Room Air HEENT: Moist Membranes Heart: Rhythm Normal Lungs: Clear Cervical Dilatation: 3cm Effacement: 75% Membranes: Intact Heart Rate: 140's Accelerations: Accelerations Present Short Term Variability: Present Contractions on Admission: >10 Minutes Apart Intensity: Mild Labs Laboratory Tests Test 05/18/21 14:03 05/18/21 15:15 Range/Units Urine Color YELLOW Urine Clarity CLEAR Urine pH 7.5 5-9 Urine Specific [place] 1.020 1.016-1.022 Urine Protein NEGATIVE NEGATIVE Urine Glucose (UA) NEGATIVE NEGATIVE Urine Ketones NEGATIVE NEGATIVE Urine Nitrite NEGATIVE NEGATIVE Urine Bilirubin NEGATIVE NEGATIVE Urine Urobilinogen 0.2 < = 1.0 MG/DL Urine Leukocyte Esterase NEGATIVE NEGATIVE Urine RBC (Auto) NEGATIVE NEGATIVE Urine RBC NONE /HPF Urine WBC 2-5 /HPF Urine Squamous Epithelial Cells 2-5 /HPF Urine Crystals PRESENT H /LPF Urine Amorphous Sediment RARE ROJELIO PHOSPHATE H /LPF Urine Bacteria NEGATIVE /HPF Urine Casts NONE /LPF Urine Mucus NEGATIVE /LPF Urine Culture Indicated NO White Blood Count 11.4 H 4.3-11.0 10^3/uL Red Blood Count 3.99 3.80-5.11 10^6/uL Hemoglobin 12.2 11.5-16.0 g/dL Hematocrit 36 35-52 % Mean Corpuscular Volume 90 80-99 fL Mean Corpuscular Hemoglobin 31 25-34 pg Mean Corpuscular Hemoglobin Concent 34 32-36 g/dL Red Cell Distribution Width 12.7 10.0-14.5 % Platelet Count 158 130-400 10^3/uL Mean Platelet Volume 13.2 H 9.0-12.2 fL Immature Granulocyte % (Auto) 1 % Neutrophils (%) (Auto) 75 42-75 % Lymphocytes (%) (Auto) 17 12-44 % Monocytes (%) (Auto) 6 0-12 % Eosinophils (%) (Auto) 1 0-10 % Basophils (%) (Auto) 0 0-10 % Neutrophils # (Auto) 8.6 H 1.8-7.8 10^3/uL Lymphocytes # (Auto) 2.0 1.0-4.0 10^3/uL Monocytes # (Auto) 0.7 0.0-1.0 10^3/uL Eosinophils # (Auto) 0.1 0.0-0.3 10^3/uL Basophils # (Auto) 0.0 0.0-0.1 10^3/uL Immature Granulocyte # (Auto) 0.1 0.0-0.1 10^3/uL Percent Immature Platelet Fraction 17.4 H 0.0-7.6 % Smear Scan YES OB - Assessment/Plan/Diagnosis Assessment Assessment: active labor Admission Dx 1. IUP at 38weeks in labor Admission Status: Inpatient Order (span 2 midnights) Reason for Inpatient Admission: L&D Plan Plan: Expectant Management Induction Method: CALLUM YAN MD May 18, 2021 16:59
[2021-05-18] MEDS ORDERED: OXYTOCIN PRE-MIX DRIP 500 ML IV SCH ×2 (17:30→19:45)
[2021-05-18] MEDS ORDERED: fentaNYL 2 mcg/ml BUPIVA 0.125 100 ML ONE (17:59)
[2021-05-18] MEDS ORDERED: BUPIVACAINE 0.25% 30 ML (SENSORCAINE) VIAL ONE (18:28)
[2021-05-18] MEDS ORDERED: fentaNYL INJ 100 MCG/2 ML AMP ONE (18:28)
[2021-05-18] MEDS ORDERED: EPIDURAL (fentaNYL 2 MCG/ML BUPIVA 0.125%)100 ML BAG EPI PRN (18:45)
[2021-05-18] MEDS ORDERED: fentaNYL INJ 100 MCG/2 ML AMP INJ ONE (18:45)
[2021-05-18] MEDS ORDERED: ONDANSETRON 4 MG/2 ML (SDV) Z0FRAN IV PRN (18:45)
[2021-05-18] MEDS ORDERED: NALOXONE 0.4 MG/ML 1 ML (NARCAN) VIAL IV PRN ×2 (18:45→19:45)
[2021-05-18] MEDS ORDERED: LACTATED RINGERS 1,000 ML IV ONE ×2 (18:45)
[2021-05-18] MEDS ORDERED: MEPIVACAINE (CARBOCAINE) 2% 50 ML VIAL ONE (19:11)
--- NOTE | 2021-05-18 19:42 | OB Labor & Delivery Record ---
L&D History Date of Service Date of Service: May 18, 2021 History Expected Date of Delivery: May 31, 2021 Gestational Age in Weeks: 38 Hx : 3 Hx Para: 2 Complications Events: Routine care Operative Indications (Cesarea: N/A-Vaginal Delivery Intrapartal Events: None L&D Stage1 Stage One Onset of Labor - Date: May 18, 2021 Onset of Labor - Time: 12:00 Monitors and Tracing Monitor Mode: External Heart Rate: 130 Monitor Accelerations: Uniform Monitor Decelerations: None Station: -2 Fdc Variability: Average (6-10) Short Term Variability: Present Presentation: Vertex Vital Signs VS - Last 72 Hours, by Label 05/18/21 05/18/21 05/18/21 13:45 13:46 13:56 Temp 36.0 36.0 36.0 Pulse 88 88 105 Resp 18 18 18 B/P (MAP) 119/75 (90) Pulse Ox 98 98 98 O2 Delivery Room Air Room Air Room Air Signs of Distress by FHT Signs of Distress no Rupture of Membranes Spontaneous Ruture of Membrane: No Amniotic Membrane Rupture Time: 17:15 Amniotic Membrane Fluid Desc.: Clear Vaginal Bleeding Description: None L&D Stage2 Stage Two Stage II Date: May 18, 2021 Stage II Time: 19:25 Monitors and Tracing Monitor Mode: External Heart Rate: 130 Monitor Accelerations: Uniform Monitor Decelerations: None Fdc Variability: Average (6-10) Short Term Variability: Present Position: Left Occiput Anterior Presentation: Vertex Signs of Distress by FHT Signs of Distress no Cord Descript/Complications Cord Vessel Description: 3 Vessels Delivery Type Infant Delivery Method: Spontaneous Vaginal Anterior Shoulder: Left Episiotomy/Perineal Laceration Laceraction(s)/Extensions: No Condition of Delivery 1 minute Comment: 8 5 minute Comment: 9 Condition of Condition of Infant: Living Exam: No Observed Abnormalities Resuscitation Resuscitation: N/A - Spontaneous Resp L&D Stage3 Stage Three Stage III Date: May 18, 2021 Stage III Time: 19:30 Pictocin Pitocin ml/hr: 125 Placenta Delivery Placenta Delivery: Spontaneous Delivery Summary Summary Estimated blood loss (mL): 100 Condition of Delivery Examined: Cervix Examined Post Hemorrhage: No Intervention Required None Condition of Mother good CALLUM VELA MD May 18, 2021 19:42
[2021-05-18] MEDS ORDERED: MEASLES,MUMPS,RUBELLA 1 EA INJ SQ ONE (19:45)
[2021-05-18] MEDS ORDERED: BENZOCAINE/MENTHOL (DERMOPLAST) 56 ML CAN TP PRN (19:45)
[2021-05-18] MEDS ORDERED: TETANUS,DIPTH,PERTUSS P/F (BOOSTRIX) 0.5 ML VIAL IM ONE (19:45)
[2021-05-18] MEDS ORDERED: WITCH HAZEL(TUCKS) 40 EA JAR TOP PRN (19:45)
[2021-05-18] MEDS ORDERED: CATHETER FLUSH 10 ML SYR IV SCH ×2 (22:00)
[2021-05-18] MEDS: IBUPROFEN 600 MG (MOTRIN) TAB PO SCH (22:18)
[2021-05-19] MEDS ORDERED: ACETAMINOPHEN 500 MG TAB (TYLENOL) PO SCH
[2021-05-19 00:10] VITALS: BP 102/56
[2021-05-19 04:06] VITALS: BP 92/50
[2021-05-19] MEDS: IBUPROFEN 600 MG (MOTRIN) TAB PO SCH ×4 (04:06→20:39)
[2021-05-19 05:46] LABS: LYMPHOCYTES % (AUTO) 18 % (12-44); MEAN CORPUSCULAR HEMOGLOBIN 31 pg (25-34); MEAN CORPUSCULAR VOLUME 91 fL (80-99)
[2021-05-19 05:48] LABS: BASOPHILS % (AUTO) 0 % (0-10); EOSINOPHILS # (AUTO) 0.1 10^3/uL (0.0-0.3); EOSINOPHILS % (AUTO) 1 % (0-10); HEMATOCRIT 33 % (35-52); LYMPHOCYTES # (AUTO) 2.4 10^3/uL (1.0-4.0); MEAN CORPUSCULAR HGB CONC 34 g/dL (32-36); MEAN PLATELET VOLUME 13.2 fL (9.0-12.2); MONOCYTES # (AUTO) 0.9 10^3/uL (0.0-1.0); MONOCYTES % (AUTO) 7 % (0-12); NEUTROPHILS # (AUTO) 9.8 10^3/uL (1.8-7.8); NEUTROPHILS % (AUTO) 74 % (42-75); PLATELET COUNT 134 10^3/uL (130-400); WHITE BLOOD COUNT 13.2 10^3/uL (4.3-11.0)
--- NOTE | 2021-05-19 07:36 | Discharge Summary ---
Diagnosis/Chief Complaint Date of Admission May 18, 2021 at 14:42 Date of Discharge Discharge Date: May 19, 2021 Admission Diagnosis Admission Diagnosis 1. Intrauterine at term 38 weeks gestation Discharge Diagnosis 1. Intrauterine at term 38 weeks gestation Reason Hospital Visit 20-year-old 3 now term 2 who initially presented to labor and delivery with contractions. At that time she was noted to be dilated to 4 cm with bulging membranes. Her group B strep status performed at 36 weeks was negative. Her EDC is noted to be June 01, 2021. Discharge Summary-OBS Procedures 1. Epidural per anesthesia 2. Spontaneous vaginal delivery Discharge Physical Examination Allergies: Coded Allergies: codeine (Verified Allergy, Mild, HIVES, pt has taken Lortab w/o issue, 02/09/20) amoxicillin (Unverified Adverse Reaction, Mild, 01/22/18) potassium clavulanate (Unverified Adverse Reaction, Mild, 01/22/18) Vitals & I&Os Vital Signs Date Time Temp Pulse Resp B/P (MAP) Pulse Ox O2 Delivery O2 Flow Rate FiO2 05/19/21 04:06 36.4 76 18 92/50 (64) 98 Room Air General Appearance: No Acute Distress Respiratory: Clear to Auscultation Cardiovascular: Regular Rate Abdominal: Soft (with uterus firm) Hospital Course Was the Problem List Reviewed?: Yes following delivery patient underwent labor course. She ultimately went on to deliver a term viable male with Apgars of 8 at 1 minute and 9 at 5 minutes. See labor and delivery for full details following delivery she underwent routine care orders. She had no complications during the remainder of hospital stay. She had hemoglobin on May 18 of 12.2 and on May 19 hemoglobin 11.0. On day of dismissal she was without any significant complaints. There is no significant vaginal bleedi ng and she had no reports of chest pain or shortness of breath. She will be discharged to home in the evening of May 19, 2021 and follow-up with Dr. Vela in 6 weeks. Pending Labs Laboratory Tests 05/19/21 05:39: White Blood Count 13.2, Red Blood Count 3.59, Hemoglobin 11.0, Hematocrit 33, Mean Corpuscular Volume 91, Mean Corpuscular Hemoglobin 31, Mean Corpuscular Hemoglobin Concent 34, Red Cell Distribution Width 12.8, Platelet Count 134, Mean Platelet Volume 13.2, Immature Granulocyte % (Auto) 1, Neutrophils (%) (Auto) 74, Lymphocytes (%) (Auto) 18, Monocytes (%) (Auto) 7, Eosinophils (%) (Auto) 1, Basophils (%) (Auto) 0, Neutrophils # (Auto) 9.8, Lymphocytes # (Auto) 2.4, Monocytes # (Auto) 0.9, Eosinophils # (Auto) 0.1, Basophils # (Auto) 0.0, Immature Granulocyte # (Auto) 0.1, Percent Immature Platelet Fraction 16.5 Discharge Instructions to patient/family Please see electronic discharge instructions given to patient. Discharge Medications Reviewed and agree with Discharge Medication list on patient's Discharge Instruction sheet CALLUM VELA MD May 19, 2021 07:36
[2021-05-19] MEDS ORDERED: IBUP-844 PO (07:37)
--- NOTE | 2021-05-19 07:37 | Discharge Inst-Women's Service ---
Discharge Inst-Women's Serv Depart Medication/Instructions New, Converted or Re-Newed RX: [facility] to [facility] ([facility]) Problems Reviewed?: Yes Consults/Follow Up Additional Follow Up: Yes (Dr Vela in 6 weeks) Activity Driving Instructions: No Driving for 1 Week Nothing Inside Vagina: No [place] (for 6 weeks) Diet Discharge Diet: Regular Diet Return to The Hospital For: as below Symptoms to Report to : Bleeding Excessive, Fever Over 101 Degrees F, Vaginal Discharge Foul For Any Problems or Questions: Contact Your Physician CALLUM VELA MD May 19, 2021 07:37
[2021-05-19 08:57] VITALS: BP 103/68
[2021-05-19] MEDS: DOCUSATE SODIUM 100 MG (COLACE) CAP PO SCH ×2 (09:00→20:39)
--- NOTE | 2021-05-19 11:08 | Anesthesia-Regional Post-Op ---
Regional Patient Condition Mental Status: Alert, Oriented x3 Circulation: Same as Pre-Op Headache: Absent Sensation: Full Recovery Motor Block: Absent Post Op Complications Complications None Follow Up Care/Instructions Patient Instructions None needed. Anesthesia/Patient Condition Patient is doing well, no complaints, stable vital signs, no apparent adverse anesthesia problems. No complications reported per nursing. ZUNILDA STEWART CRNA May 19, 2021 11:08
[2021-05-19 12:41] VITALS: BP 86/42
[2021-05-19] MEDS ORDERED: TETANUS,DIPTH,PERTUSS P/F (BOOSTRIX) 0.5 ML VIAL IM ONE (14:10)
[2021-05-19 17:11] VITALS: BP 106/57
[2021-05-19 20:38] VITALS: BP 97/55
== END 2021-05-19 21:45 | disposition home or self-care (01) | DRG 807 ==
LOC: WSo 13:28 → LDRP 13:30 → WSo 14:42 → LDRP 21:15
PROVIDERS: ADMIT Family Medicine; ATTEND Family Medicine
PROC: 10E0XZZ Delivery of Products of Conception, External Approach (ICD-10-PCS; principal; 2021-05-18)
DX: O80 Encounter for full-term uncomplicated delivery (principal); Z37.0 Single live birth; Z3A.38 38 weeks gestation of pregnancy; Z88.5 Allergy status to narcotic agent; Z88.1 Allergy status to other antibiotic agents; Z23 Encounter for immunization
CPT/HCPCS: 36415; 81000; 85025; 86850; 86900; 86901; 90715

== ENCOUNTER 2021-07-30 14:31 | Emergency (ER) | payer MEDICAID ==
[~2021-07-30] VITALS: Ht 160 cm; Wt 51.0 kg
[~2021-07-30 14:31] MED LIST changes: +IBUP-844 PO
--- NOTE | 2021-07-30 14:55 | ED Cough/URI ---
General Chief Complaint: COVID19 Suspect/Confirmed Stated Complaint: SICK FOR 3 WEEKS, SINUSES, COVID EXPOSURE History of Present Illness Date Seen by Provider: Jul 30, 2021 Time Seen by Provider: 14:38 Initial Comments 21-year-old female presents for sinus congestion, cough and myalgias since July 28, 2021. She reports that her son is COVID-positive. She has taken a home test which has been negative. She has not been vaccinated for COVID. She did get a flu vaccine. She denies any fevers. No medications prior to arrival. SaO2 99% on room air, no SOA. Timing/Duration: intermittent Severity/Quality: dry cough Prior Episodes/Possible Cause: occasional episodes Associated Symptoms: cough, headache, muscle aches, nasal congestion, nasal drainage (CARLA SOTO) Allergies and Home Medications Allergies Coded Allergies: codeine (Verified Allergy, Mild, HIVES, pt has taken Lortab w/o issue, 02/09/20) amoxicillin (Unverified Adverse Reaction, Mild, 01/22/18) potassium clavulanate (Unverified Adverse Reaction, Mild, 01/22/18) Patient Home Medication List Home Medication List Reviewed: Yes (CARLA SOTO) Ibuprofen (Ibu) 600 Mg Tablet, 600 MG PO Q6H Prescribed by: CALLUM VELA on 05/19/21 0737 Vits #93/Iron Fum/FA ( Formula Tablet) 1 Each Tablet, 1 EACH PO DAILY, (Reported) Entered as Reported by: LAZARO HERNANDEZ on 09/23/19 1106 Review of Systems Review of Systems Constitutional: see HPI; No fever; malaise EENTM: see HPI, no symptoms reported Respiratory: see HPI, cough; No dyspnea on exertion, No short of breath Cardiovascular: no symptoms reported, see HPI Gastrointestinal: no symptoms reported, see HPI; No abdominal pain, No diarrhea, No loss of appetite, No nausea, No vomiting Musculoskeletal: no symptoms reported, see HPI Skin: no symptoms reported, see HPI (CARLA SOTO) All Other Systems Reviewed Negative Unless Noted: Yes (CARLA SOTO) Past [id number] Hx Immunizations Up To Date Tetanus Booster (TDap): Less than 5yrs PED Vaccines UTD: Yes (CARLA SOTO) Seasonal Allergies Seasonal Allergies: No (CARLA SOTO) Past Medical History Surgeries: Yes Appendectomy, Ear Surgery, Gallbladder Respiratory: No Currently Using CPAP: No Currently Using BIPAP: No Cardiac: No Palpitations, Syncope Neurological: No Headaches /Migraines Reproductive Disorders: Yes (Ovarian Cysts; HX OF HEAVY PERIODS) Female Reproductive Disorders: Menstrual Problems, Ovarian Cyst Sexually Transmitted Disease: No HIV/AIDS: No Genitourinary: No UTI-Chronic Gastrointestinal: Yes Gastroesophageal Reflux, Hiatal Hernia, Gall Bladder Disease Musculoskeletal: No Endocrine: No HEENT: No Loss of Vision: Denies Hearing Impairment: Denies Cancer: No Psychosocial: Yes Anxiety Integumentary: No Blood Disorders: No Adverse Reaction/Blood Tranf: No (N/A) (CARLA SOTO) Family Medical History Reviewed Nursing Family Hx (CARLA SOTO) FH: lupus 19 MOTHER No Pertinent Family Hx (CARLA SOTO) Physical Exam Vital Signs - First Documented 07/30/21 14:35 Temp 36.9 Pulse 94 Resp 18 B/P (MAP) 105/69 (81) Pulse Ox 99 (MIKHAIL TOMPKINS MD) Capillary Refill : (CARLA SOTO) Height: 5'4.00" Weight: 106lbs. 0.0oz. 48.061597vi; 21.71 BMI Method:Stated General Appearance: WD/WN, no apparent distress HEENT: PERRL/EOMI, normal ENT inspection, TMs normal, pharynx normal Neck: non-tender, full range of motion, supple, normal inspection Respiratory: chest non-tender, lungs clear, normal breath sounds Cardiovascular: normal peripheral pulses, regular rate, rhythm Gastrointestinal: normal bowel sounds, non tender, soft Extremities: normal range of motion, non-tender, normal inspection, normal capillary refill Neurologic/Psychiatric: no motor/sensory deficits, alert, normal mood/affect, oriented x 3 Skin: normal color, warm/dry (CARLA SOTO) Progress/Results/Core Measures Suspected Sepsis SIRS Temperature: Pulse: Respiratory Rate: Blood Pressure / Mean: (CARLA SOTO) Results/Orders Lab Results Laboratory Tests Test 07/30/21 14:39 Range/Units Coronavirus (COVID-19)(PCR) Positive H Negative Influenza Type A Antigen NEGATIVE NEGATIVE Influenza Type B Antigen NEGATIVE NEGATIVE (MIKHAIL TOMPKINS MD) Vital Signs/I&O 07/30/21 07/30/21 14:35 15:35 Temp 36.9 36.9 Pulse 94 94 Resp 18 18 B/P (MAP) 105/69 (81) 105/69 Pulse Ox 99 99 (MIKHAIL TOMPKINS MD) Vital Signs/I&O Capillary Refill : (CARLA SOTO) Departure Impression Primary Impression: Person under investigation for COVID-19 Additional Impression: Viral URI Disposition: HOME, SELF-CARE Condition: Stable Departure-Patient Inst. Decision time for Depature: 15:05 (CARLA SOTO) Referrals: CALLUM VELA MD (PCP/Family) Primary Care Physician Patient Instructions: COVID-19 (DC), Cough, Adult (DC), Viral Upper Respiratory Infection, Adult (DC) Add. Discharge Instructions: Use Afrin nasal spray for 3 to 4 days and then discontinue usage. Your influenza test was negative. You may use DayQuil and NyQuil for symptoms as needed. Alternate between Tylenol 650 mg and ibuprofen 600 mg every 4 hours for general discomfort or fevers. Increase water intake, 16 ounces every 2 hours while awake. Aspirin 81 mg daily for 3 weeks. We will call you with your COVID results within the next 24 to 48 hours, if you have not heard from us by Sunday at noon you can call for results. Follow-up with your primary care provider if your symptoms are not improving or worsen. Continue your home quarantine from exposure with your son, pending the results of your COVID additional quarantine or isolation may be required and follow [place] guidelines. Make sure you are taking deep breaths hourly and walking 5 to 10 minutes every 2 hours while awake. If negative for COVID, please obtain a COVID vaccine when you are feeling better. Return to the emergency department for new, urgent healthcare needs. All discharge instructions reviewed with patient and/or family. Voiced understanding. ATTENDING PHYSICIAN NOTE: I was physically present as attending physician in the emergency department during the care of this patient, but I was not directly involved in the decision making or delivery of care for this patient. (MIKHAIL TOMPKINS MD) CARLA SOTO Jul 30, 2021 14:55 MIKHAIL TOMPKISN MD Aug 01, 2021 08:13
[2021-07-30 15:35] VITALS: BP 105/69
== END 2021-07-30 15:35 | disposition home or self-care (01) ==
LOC: EDUNIT# 14:31 → ER 14:35
DX: U07.1 COVID-19 (principal)
CPT/HCPCS: 87635; 87804; 99283